=== PATIENT | male | born 1975 | race Caucasian/White ===

== ENCOUNTER → 2016-11-22 | Outpatient (CLI) | payer BC | LOC: LAB 14:54 | DX: J31.2 Chronic pharyngitis (principal) ==

== ENCOUNTER → 2016-12-07 | Outpatient (CLI) | payer BC | LOC: RAD 10:43 | DX: R09.81 Nasal congestion (principal); R07.89 Other chest pain; J20.8 Acute bronchitis due to other specified organisms ==

== ENCOUNTER → 2017-11-02 | Outpatient (CLI) | payer OTHER ==
[2017-11-02 08:32] LABS: ALBUMIN 4.7 g/dL (3.5-5.0); BUN/CREATININE RATIO 13.9 (6.0-26.0); CALCIUM 9.4 mg/dL (8.4-10.2); POTASSIUM 4.1 mmol/L (3.6-5.0); TOTAL BILIRUBIN 0.7 mg/dL (0.2-1.3); TOTAL PROTEIN 8.4 g/dL (6.3-8.2)
[2017-11-02 08:53] LABS: URINE APPEARANCE CLEAR; URINE BILIRUBIN NEGATIVE (NEGATIVE); URINE BLOOD NEGATIVE (NEGATIVE); URINE COLOR YELLOW; URINE GLUCOSE NEGATIVE (NEGATIVE); URINE KETONE NEGATIVE (NEGATIVE); URINE LEUKOCYTE ESTERASE NEGATIVE (NEGATIVE); URINE MUCUS PRESENT (NOT PRESENT); URINE NITRATE NEGATIVE (NEGATIVE); URINE PROTEIN(semi-quant) NEGATIVE (NEGATIVE); URINE UROBILINOGEN NORMAL (NORMAL); URINE WBC 0-1 /hpf (0-3)
[2017-11-02 23:37] LABS: CREATININE OTHER SOURCE 261 mg/dL (())
== END ==
LOC: LAB 08:05
PROVIDERS: Family Medicine
DX: M54.9 Dorsalgia, unspecified (principal); Z13.89 Encounter for screening for other disorder; R80.8 Other proteinuria; Z00.00 Encounter for general adult medical examination without abnormal findings; L98.9 Disorder of the skin and subcutaneous tissue, unspecified; A63.0 Anogenital (venereal) warts; Z13.1 Encounter for screening for diabetes mellitus; Z13.6 Encounter for screening for cardiovascular disorders; Z88.1 Allergy status to other antibiotic agents

== ENCOUNTER → 2018-06-21 | Outpatient (CLI) | payer OTHER | LOC: RAD 15:34 | DX: M17.12 Unilateral primary osteoarthritis, left knee (principal); W10.8XXA Fall (on) (from) other stairs and steps, initial encounter ==

== ENCOUNTER 2018-11-02 09:30 | Outpatient (RCR) | payer OTHER | END 2018-11-02 10:00 | disposition home or self-care (01) | LOC: PT 09:30 | DX: M70.42 Prepatellar bursitis, left knee (principal) ==

== ENCOUNTER 2018-12-14 02:19 | Emergency (ER) | payer OTHER ==
[~2018-12-14] VITALS: Ht 177.8 cm; Wt 100.0 kg
[2018-12-14 04:42] VITALS: BP 140/102
== END 2018-12-14 04:42 | disposition home or self-care (01) ==
LOC: ED 02:19
DX: S01.01XA Laceration without foreign body of scalp, initial encounter (principal); Z23 Encounter for immunization; W01.190A Fall on same level from slipping, tripping and stumbling with subsequent striking against furniture, initial encounter
CPT/HCPCS: 90715

== ENCOUNTER → 2018-12-17 | Outpatient (CLI) | payer OTHER ==
[2018-12-14 04:42] VITALS: BP 140/102
== END ==
LOC: LAB 10:24
PROVIDERS: Family Medicine
DX: E04.1 Nontoxic single thyroid nodule (principal); R53.83 Other fatigue; R49.0 Dysphonia; R06.83 Snoring; Z83.49 Family history of other endocrine, nutritional and metabolic diseases

== ENCOUNTER → 2022-01-12 | Outpatient (CLI) | payer SELFPAY ==
[2022-01-12 10:26] LABS: BASO # 0.03 K/mm3 (0.02-0.10); EOS # 0.18 K/mm3 (0.04-0.40); EOS % 3.5 % (0.0-4.0); HEMATOCRIT 49.3 % (42.0-52.0); HEMOGLOBIN 16.8 g/dL (13.5-18.0); LYMPH# 1.69 K/mm3 (1.50-4.00); MEAN CELL VOLUME 90 fl (78-100); MEAN CORPUSCULAR HEMOGLOBIN 31 pg (27-31); MEAN CORPUSCULAR HGB CONC 34 g/dL (33-37); MEAN PLATELET VOLUME 9.8 fl (7.4-10.4); MONO # 0.54 K/mm3 (0.20-0.80); NEU # 2.63 K/mm3 (1.40-6.50); PLATELET COUNT 258 K/mm3 (130-400); RED BLOOD COUNT 5.49 M/mm3 (4.20-5.60); RED CELL DISTRIBUTION WIDTH 12.2 % (11.5-14.5); WHITE BLOOD COUNT 5.1 K/mm3 (4.8-10.8)
[2022-01-12 10:35] LABS: ALBUMIN 4.7 g/dL (3.5-5.0); POTASSIUM 4.9 mmol/L (3.5-5.1)
[2022-01-12 10:36] LABS: CALCIUM 10.1 mg/dL (8.3-10.5)
[2022-01-12 10:37] LABS: TOTAL PROTEIN 8.2 g/dL (6.4-8.3)
[2022-01-12 10:39] LABS: TOTAL BILIRUBIN 0.6 mg/dL (0.2-1.2)
== END ==
LOC: LAB 08:40
PROVIDERS: Family Medicine
DX: Z13.220 Encounter for screening for lipoid disorders (principal); Z19.1 Hormone sensitive malignancy status; Z83.3 Family history of diabetes mellitus

== ENCOUNTER → 2023-11-28 | Outpatient (CLI) | payer OTHER ==
[2023-11-28 21:59] LABS: HEPATITIS C VIRUS ANTIBODY Negative (Negative)
== END ==
LOC: LAB 08:39
PROVIDERS: Family Medicine
DX: Z11.4 Encounter for screening for human immunodeficiency virus [HIV] (principal); Z11.59 Encounter for screening for other viral diseases; E78.2 Mixed hyperlipidemia